=== PATIENT | female | born 1955 | race Caucasian/White ===

== ENCOUNTER 2018-11-04 12:07 | Day surgery (SDC) | payer OTHER ==
[2018-11-04] MEDS ORDERED: PROPOFOL 40 ML (13:32)
[2018-11-04] MEDS ORDERED: LIDOCAINE 2% (SDV) 5 ML INJ (13:32)
== END 2018-11-04 15:17 | disposition home or self-care (01) ==
LOC: GIL 12:07
DX: Z12.11 Encounter for screening for malignant neoplasm of colon (principal); K64.8 Other hemorrhoids; K57.32 Diverticulitis of large intestine without perforation or abscess without bleeding; E11.9 Type 2 diabetes mellitus without complications; M19.90 Unspecified osteoarthritis, unspecified site; Z79.84 Long term (current) use of oral hypoglycemic drugs
CPT/HCPCS: 45378; 82962